=== PATIENT | female | born 1980 | race Caucasian/White ===

== ENCOUNTER 2021-10-09 14:33 | Outpatient (CLI) | payer BC, SELFPAY | END 2021-10-09 14:34 | disposition home or self-care (01) | PROVIDERS: PCP Family Medicine; Visit Provider Registered Nurse | DX: B37.3 Candidiasis of vulva and vagina | CPT/HCPCS: 87102; 87106 ==

== ENCOUNTER 2022-12-10 14:33 | Outpatient (CLI) | payer BC, SELFPAY ==
--- NOTE | 2022-12-10 14:40 | CRLHL7_ITS ---
For Patients: As a result of the Century Cures Act, medical imaging exams and procedure reports are released immediately into your electronic medical record. You may view this report before your referring provider. If you have questions, please contact your health care provider. BILATERAL DIGITAL SCREENING MAMMOGRAM WITH COMPUTER-AIDED DETECTION AND TOMOSYNTHESIS CLINICAL HISTORY: Routine screening exam. COMPARISON: None. TECHNIQUE: Digital mammogram in CC and MLO projections including computer-aided detection (CAD). Tomosynthesis was used. BREAST COMPOSITION: The breasts are heterogeneously dense, which may obscure small masses FINDINGS: RIGHT Breast: No suspicious findings. LEFT Breast: Focal asymmetric density posterior depth lower outer quadrant 7 cm from the nipple. IMPRESSION: LEFT breast asymmetry/mass. RECOMMENDATIONS: Additional mammographic views of the LEFT breast including 3D spot compression CC/MLO. LEFT breast ultrasound may also be required. A member of the radiology staff will be contacting the patient to arrange for this additional study. BI-RADS Category 0: Incomplete: Need Additional Imaging Evaluation and/or Prior Mammograms for Comparison. [facility] will contact the patient for follow-up. A lay language report of this examination will be provided to the patient. Dictated by Bob Jordan MD @ 12/11/2022 1:01:46 PM/earnestine ROSEANN/Dictated by: Bob Jordan MD @ 12/11/2022 1:02:00 PM (Electronically Signed)
== END 2022-12-10 14:34 | disposition home or self-care (01) ==
LOC: MAMMO 14:34
PROVIDERS: PCP Family Medicine; Visit Provider Family Medicine
DX: Z12.31 Encounter for screening mammogram for malignant neoplasm of breast (principal); N63.20 Unspecified lump in the left breast, unspecified quadrant
CPT/HCPCS: 77063; 77067

== ENCOUNTER 2022-12-22 09:02 | Outpatient (CLI) | payer BC, SELFPAY ==
--- NOTE | 2022-12-22 09:45 | CRLHL7_ITS ---
Patient: ANAYELI DUVAL Facility:?[facility] Patient ID:?[id number] Site Patient ID:?[id number]. Site :?1980 Study:?XRay-Breast Left 3D W/CAD-12/22/2022 10:21:48 AM Ordering Physician:Jack Hwang Final Report: DIGITAL DIAGNOSTIC LEFT MAMMOGRAM USING TOMOSYNTHESIS AND COMPUTER-AIDED DETECTION CLINICAL HISTORY: LEFT breast mass/asymmetry. COMPARISON: 12/10/2022. TECHNIQUE: Digital LEFT mammogram in two projections. Tomosynthesis and CAD utilized. Real-time ultrasound imaging of LEFT breast with imaging documentation. Scanning was performed by both the technologist and the radiologist. BREAST COMPOSITION: The breast is heterogeneously dense, which may obscure small masses. FINDINGS: 3D spot compression CC/MLO LEFT breast mammogram images submitted. No architectural distortion. Decreased conspicuity of asymmetric density. No suspicious calcifications. Targeted LEFT breast ultrasound performed in the lower outer quadrant adjacent to the chest wall, 5 o`clock 7 cm from the nipple. Normal fibroglandular tissue is present. No suspicious findings. No solid masses or fibrocystic change. IMPRESSION: No evidence of malignancy. RECOMMENDATIONS: Annual BILATERAL screening mammography. Results and recommendations discussed with the patient. BI-RADS Category 2: Benign A lay language report of this examination will be provided to the patient. Dictated by Bob Jordan MD @ 12/22/2022 10:59:32 AM jj/Dictated by: Bob Jordan MD @ 12/22/2022 10:59:00 AM Signed by:?Bob Jordan MD @12/22/2022 11:22:09 AM (Electronic Signature)
--- NOTE | 2022-12-22 10:15 | US_ITS ---
Patient: ANAYELI DUVAL Facility:?[facility] Patient ID:?[id number] Site Patient ID:?[id number]. Site :?1980 Study:?XRay-ULTRASOUND Breast Left Dr. Jordan to read-12/22/2022 10:34:21 AM Ordering Physician:?Holden Hwang Final Report: PLEASE SEE DIGITAL DIAGNOSTIC LEFT MAMMOGRAM PERFORMED SAME DAY CRL:hailee stephen/Dictated by: Bob Jordan MD @ 12/22/2022 10:59:00 AM Signed by:?Bob Jordan MD @12/22/2022 11:22:12 AM (Electronic Signature)
== END 2022-12-22 09:03 | disposition home or self-care (01) ==
PROVIDERS: PCP Family Medicine; Visit Provider Family Medicine
DX: N63.20 Unspecified lump in the left breast, unspecified quadrant (principal); R92.8 Other abnormal and inconclusive findings on diagnostic imaging of breast
CPT/HCPCS: 76642; 77065; G0279

== ENCOUNTER 2024-08-17 10:18 | Outpatient (CLI) | payer BC, SELFPAY ==
[2024-08-17 15:42] LABS: Chlamydia DNA Amplified* NOT DETECTED (No Detected); GC DNA Amplified* NOT DETECTED (No Detected)
[2024-08-19 00:38] LABS: HPV Source Cervix; HPV, High Risk by TMA Not Detected
== END 2024-08-17 10:19 | disposition home or self-care (01) ==
PROVIDERS: PCP Family Medicine; Visit Provider Registered Nurse
DX: Z00.01 Encounter for general adult medical examination with abnormal findings (principal); N89.8 Other specified noninflammatory disorders of vagina; N93.9 Abnormal uterine and vaginal bleeding, unspecified; E78.5 Hyperlipidemia, unspecified; Z12.4 Encounter for screening for malignant neoplasm of cervix; Z11.51 Encounter for screening for human papillomavirus (HPV); Z11.3 Encounter for screening for infections with a predominantly sexual mode of transmission
CPT/HCPCS: 80061; 84443; 87491; 87591; 87624; 87625; 88141; 88142

== ENCOUNTER 2024-08-28 14:36 | Outpatient (CLI) | payer BC, SELFPAY ==
--- NOTE | 2024-08-28 14:45 | CRLHL7_ITS ---
For Patients: As a result of the Century Cures Act, medical imaging exams and procedure reports are released immediately into your electronic medical record. You may view this report before your referring provider. If you have questions, please contact your health care provider. INDICATION: Displacement of IUD COMPARISON: None. TECHNIQUE: 2D tomlin-scale and color Doppler images were acquired of the pelvis using a transabdominal and transvaginal approach. Transvaginal imaging performed to better visualize the endometrial stripe and ovaries. FINDINGS: Pedunculated fibroid right-sided lower uterine segment measures 7.0 x 3.2 x 3.8 cm. Intramural fibroid is present on the left measured 12 x 9 x 10 millimeters and 11 x 8 x 6 millimeters. Right exophytic uterine fundal fibroid measures 15 x 14 x 16 millimeters. Uterus measures 9.3 cm in length by 5.0 cm in AP diameter by 6.2 cm in transverse dimension. IUD is present in good position within the endometrial canal. The right ovary measures 2.8 x 1.5 x 2.3 cm in size and the left ovary measures 4.1 x 2.7 x 2.0 cm. The ovaries demonstrate normal arterial and venous blood flow on color Doppler analysis. There are no suspicious fluid collections within the cul-de-sac. IMPRESSION: Multiple uterine fibroids. IUD is present in good position within the endometrial canal. Dictated by Bob Jordan MD @ 08/29/2024 9:37:39 PM (Electronically Signed)
== END 2024-08-28 14:37 | disposition home or self-care (01) ==
LOC: US 14:37
PROVIDERS: PCP Family Medicine; Visit Provider Registered Nurse
DX: T83.32XA Displacement of intrauterine contraceptive device, initial encounter (principal); D25.9 Leiomyoma of uterus, unspecified; N85.2 Hypertrophy of uterus
CPT/HCPCS: 76830; 76856

== ENCOUNTER 2024-11-15 09:32 | Outpatient (CLI) | payer BC, SELFPAY ==
--- NOTE | 2024-11-15 09:45 | CRLHL7_ITS ---
For Patients: As a result of the Century Cures Act, medical imaging exams and procedure reports are released immediately into your electronic medical record. You may view this report before your referring provider. If you have questions, please contact your health care provider. INDICATION: BILATERAL SCREENING MAMMOGRAM, ASYMPTOMATIC 44 Y/O FEMALE COMPARISON: 12/22/2022, 12/10/2022 TECHNIQUE: Digital mammogram in CC and MLO projections including computer-aided detection (CAD) and tomosynthesis. BREAST COMPOSITION: The breasts are heterogeneously dense, which may obscure small masses. FINDINGS: No suspicious findings. ASSESSMENT: BI-RADS 1 Negative RECOMMENDATION: Annual screening mammogram. A lay language report of this examination will be provided to the patient. Dictated by: Rosalie Hebert MD @ 11/15/2024 19:44:13 (Electronically Signed)
== END 2024-11-15 09:33 | disposition home or self-care (01) ==
LOC: MAMMO 09:32
PROVIDERS: PCP Family Medicine; Visit Provider Registered Nurse
DX: Z12.31 Encounter for screening mammogram for malignant neoplasm of breast (principal); R92.333 Mammographic heterogeneous density, bilateral breasts
CPT/HCPCS: 77063; 77067